=== PATIENT | female | born 1985 | race Caucasian/White ===

== ENCOUNTER 2019-12-22 14:44 | Emergency (ER) | payer BC ==
[~2019-12-22] VITALS: Ht 170.2 cm; Wt 81.6 kg
[2019-12-22 15:26] LABS: BASOPHILS % 0.6 % (0.0-1.0); EOSINOPHILS # (AUTO) 0.3 (0.0-0.4); EOSINOPHILS % 3.6 % (0.0-6.0); HEMOGLOBIN 10.6 g/dL (12.0-16.0); LYMPHOCYTES # (AUTO) 1.9 (1.0-3.2); LYMPHOCYTES % 27.7 % (18.0-39.1); MEAN CORPUSCULAR HEMOGLOBIN 30.6 pg (28-32); MEAN CORPUSCULAR HGB CONC 31.2 g/dL (31-35); MEAN CORPUSCULAR VOLUME 98.3 fL (81-99); MONOCYTES # (AUTO) 0.5 (0.2-0.8); MONOCYTES % 7.8 % (4.4-11.3); NEUTROPHILS # (AUTO) 4.2 (2.1-6.9); NEUTROPHILS % 59.9 % (38.7-80.0); PLATELET COUNT 223 x10e3/uL (140-360); RED BLOOD COUNT 3.46 x10e6/uL (3.6-5.1); RED CELL DISTRIBUTION WIDTH 15.5 % (11.7-14.4)
[2019-12-22 15:41] LABS: INR 0.88; PROTHROMBIN TIME 12.4 seconds (11.9-14.5)
[2019-12-22 15:51] LABS: ALANINE AMINOTRANSFERASE 37 IU/L (0-55); ALBUMIN 3.6 g/dL (3.5-5.0); ALBUMIN/GLOBULIN RATIO 1.2 (0.8-2.0); ALKALINE PHOSPHATASE 62 IU/L (40-150); ANION GAP 15.2 mmol/L (8-16); BLOOD UREA NITROGEN 14 mg/dL (7-26); BUN/CREATININE RATIO 22 (6-25); CALCIUM 8.4 mg/dL (8.4-10.2); CARBON DIOXIDE 22 mmol/L (22-29); CHLORIDE 107 mmol/L (98-107); CREATININE, SERUM 0.64 mg/dL (0.57-1.11); EST GLOMERULAR FILTRATION RATE > 60 ML/MIN (60-); GLUCOSE 88 mg/dL (74-118); POTASSIUM 4.2 mmol/L (3.5-5.1); SODIUM 140 mmol/L (136-145)
--- OUTSIDE RECORDS SUMMARY | 2019-12-22 15:56 | XMS REPORT | Continuity of Care Document ---
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 Attphys Unavailable MOMO FITZGERALD P.A. Attphys Unavailable MOMO VALE M.D. Attphys Unavailable Problems Condition Name Condition Details Condition Category Status Onset Date Resolution Date Last Treatment Date Treating Clinician Comments Source Tear of articular cartilage of left knee, current, sub s Tear of articular cartilage of left knee, current, subs Problem Active [facility] Tear of articular cartilage of right knee, current, espinal bs Tear of articular cartilage of right knee, current, subs Problem Active [facility] Postoperative pain Postoperative pain Problem Active [facility] Allergies, Adverse Reactions, Alerts This patient has no known allergies or adverse reactions. Medications Ordered Medication Name Filled Medication Name Start Date Stop Da te Current Medication? Ordering Clinician Indication Dosage Frequency Signature (SIG) Comments Components Source Ketorolac Tromethamine 10 MG Oral Tablet Ketorolac Tro methamine 10 MG Oral Tablet 2019-12-04 00:00:00 Yes YECENIA EUHUS P.A. TAKE 1 TABLET EVERY 8 HOURS NEEDED FOR PAIN.DO NOT EXCEED 40MG/DAY. DO NOT TAKE FOR MORE THAN 5 DAYS. [facility] Lidocaine 5 % External Patch Lidocaine 5 % External Patch 2019-11-24 00:00:00 Yes YECENIA EUHUS P.A. Apply to pa inful area(s) for up to 12 hours a day.May cut to size; may use on up to 3 areas (max 3 patches total/day).Do not use on incision. [facility] traMADol HCl - 50 MG Oral Tablet traMADol HCl - 50 MG Oral T ablet 2019-12-03 00:00:00 Yes MOMO FITZGERALD P.A. Take 1-2 tabs PO q4-6 h prn knee pain (max 8 tabs in 24 hr) [facility] Pregabalin 50 MG Oral Capsule Pregabalin 50 MG Oral Capsule 2019 00:00:00 Yes MOMO Lunsford Q0.3333D TAKE 1 CAPSULE 3 TIMES DAILY. [facility] Vital Signs Vital Name Observation Time Observation Value Comments Source Body height 2019-10-17 10:32:00 69 [in_us] [facility] Weight 2019-10-17 10:32:00 175 [lb_av] [facility] Body mass index (BMI) [Ratio] 2019-10-17 10:32:00 25.84 kg/m2 [facility] Height 2018-02-02 10:43:00 67 [in_us] [facility] Weight 2018-02-02 10:43:00 130 [lb_av] [facility] Body Mass Index Calculated 2018-02-02 10:43:00 20.36 kg/m2 [facility] Procedures Procedure Date / Time Performed Performing Clinician Sourc e Initial Promis 29 Survey 2019-11-27 00:00:00 [facility] X[facility] KNEE 3 VWS BILATERAL 2019-08-27 00:00:00 [facility] [U] XR KNEE 3 VWS BILATERAL 2018-08-30 00:00:00 [facility] [U] XRAY KNEE 3 VWS RIGHT [id number] 2018-08-29 00:00:00 [facility] [U] XRAY KNEE 4 OR MORE VWS BILATERAL [id number] 2018-02-02 00:00:00 [facility] [U] XRAY BONE LENGTH STUDY-SCANOGRAM [id number] 2018-02-02 00:00:00 [facility] Encounters Start Date/Time End Date/Time Encounter Type Admission Type Attendi [facility] Care Department Encounter ID Source 2019-12-03 07:00:00 2019-12-03 07:00:00 Appointment; ROSALVA BLAND M.D. MATHIS, KENNETH, M.D. [facility] [id number] [facility] 2019-10-17 10:00:00 2019-10-17 10:00:00 Appointment; ABHISHEK FITZGERALD P.A. HAWKS, CHRISTOPHER, P.A. [facility] [id number] [facility] 2019-10-17 09:15:00 2019-10-17 09:15:00 Appointment; ROSALVA BLAND M.D. MATHIS, KENNETH, M.D. [facility] Orthopedics [facility] [id number] [facility] 2019-08-29 11:15:00 2019-08-29 11:15:00 Appointment; ROSALVA BLAND M.D. MATHIS, KENNETH, M.D. [facility] at [facility] [id number] [facility] 2018-08-30 14:00:00 2018-08-30 14:00:00 Appointment; ROSALVA BLAND M.D. MATHIS, KENNETH, M.D. [facility] Orthopedics at [facility] [id number] [facility] 2018-02-02 10:00:00 2018-02-02 10:00:00 Appointment; VERNON VALE M.D. HARNER, CHRISTOPHER, M.D. [facility] Orthopedics at [facility] [id number] [facility] Results Test Description Test Time Test Comments Results Result Comments Source Initial Promis 29 Survey 2019-11-30 16:46:26 Test Item Pain Interference: (test code = Pain Interference:) 75.3 1 N Pain Intensity: (test code = Pain Intensity:) 71.8 1 N Physical Function: (test code = Physical Function:) 29.3 1 N Satisfaction Role: (test code = Satisfaction Role:) 22 1 N [facility][U] XR KNEE 3 VWS [id number] 08:04:00 Images acquired, not reported on this accession number.[facility][U] XRAY BONE LENGTH STUDY-SCANOGRAM [id number] 10:30:00* Test Item Value Reference Range Interpretation Comments XR BONE LENGTH STUDY-SCANOGRAM (test code = XR BONE LE NGTH STUDY-SCANOGRAM) EXAM: XR BONE LENGTH STUDY-SCANOGRAM DATE: 02/02/2018 2:23 PM CDT INDICATION: bilateral knee pain COMPARISON: None available TECHNIQUE: Weightbearing AP view of the bilateral lower extremities from hips to ankles DISCUSSION:Distance of the weightbearing axis (measured from Center of femoral head to midpoint of tibial plafond) to the center of the knee joint: Right knee = 0.8 cmLeft knee = 0.5 cm Genu angulation:Right knee varus = 2 degreesLeft knee varus = 2 degrees Bilateral PCL tunnels and hardware is detailed in the concomitant knee radiographs. IMPRESSION: Full length imaging of the bilateral lower extremities, measurements as above. 02/02/2018 3:38 PM CDT Juan Bland [facility][U] XRAY KNEE 4 OR MORE VWS BILATERAL [id number] 2018-02-02 10:30:00* Test Item Value Reference Range Interpretation Comments XRAY KNEE 4 OR MORE VWS BILATERAL (test code = XRAY KNEE 4 OR MORE VWS BILATERAL) EXAM: XRAY KNEE 4 OR MORE VWS BILATERAL DATE: 02/02/2018 2:24 PM CDT INDICATION: bilateral knee pain COMPARISON: None available TECHNIQUE: Weight- bearing AP, sunrise and lateral views of the bilateral knees DISCUSSION: No acute fracture or malalignment is identified. Right knee: Medial compartment joint space narrowing is present, with lateral and patellofemoral compartment joint spaces preserved. Small osteophytes are present. There is additional ACL graft tunnels and an obliquely oriented tunnel/screw track seen in the lateral femoral condyle extending across.Fixation of the proximal tibial metadiaphysis with 2 screws and washers.Vacant screw tracks seen in the femoral head. There is small joint effusion. No soft tissue abnormality is identified. Left knee: Medial compartment joint space narrowing is present, with lateral and patellofemoral compartment joint spaces preserved. Small tricompartmental osteophytes are present. Medial and lateral proximal tibial PCL tunnels are present. Additionally a lateral femoral condyle tunnel is present. There is fixation of proximal tibia with 2 screws and washers. 3 partially-threaded screws are seen in the medial aspect of the lateral femoral metadiaphysis. There is moderate joint effusion. No soft tissue abnormality is identified. IMPRESSION: 1. Right knee: Tricompartmental osteoarthrosis, most notably Kellgren-Mikael grade 3, moderate in the medial compartment. 2. Left knee: Tricompartmental osteoarthrosis, most notably Kellgren-Mikael grade 3, moderate in the medial compartment. 3. Bilateral posterior cruciate ligament tunnels and fixation hardware as above. 02/06/2018 5:26 PM CDT Juan Bland [facility]
--- NOTE | 2019-12-22 16:53 | Emergency Department Note ---
History of Present Illnes History of Present Illness Chief Complaint: General Medicine Complaints History of Present Illness This is a 34 year old female Patient in from home with reports of swelling, pain and bruising to her right lower extremity and pain to her left lower extremity. Patient is 19 days post op right total knee replacement and was told to come to the ER to rule out DVT. Patient does have some bruising to her posterior calf area on her right leg. Patient ambulating well with walker. Historian: Patient Arrival Mode: Car Specialty Trimmer Required: No Onset (how long ago): day(s) Location: BOTH LOWER LEGS Quality: PAIN Radiation: Reports non-radiation Severity: moderate Onset quality: gradual Timing of current episode: constant Chronicity: new Context: Denies recent illness Relieving factors: none Exacerbating factors: none Associated symptoms: Reports denies other symptoms (AIDA ARIAS MD) Past Medical/Family History Physician Review I have reviewed the patient's past medical and family history. Any updates have been documented here. (AIDA ARIAS MD) Past Medical History Recent Fever: No Clinical Suspicion of Infectio: No New/Unexplained Change in Ment: No Past Medical History: None Past Surgical History: Knee Replacement Other Surgery: Right total knee replacement after trampoline injury when she was 7 years old Multiple bilateral knee surgeries (AIDA ARIAS MD) Social History Smoking Cessation: Current every day smoker Counseling Performed: Yes Alcohol Use: Social Any Illegal Drug Use: No TB Exposure/Symptoms: No Physically hurt or threatened: No (AIDA ARAIS MD) Family History Family history of heart diseas: No (AIDA ARIAS MD) Other Any Pre-Existing Lines (PICC,: No (AIDA ARIAS MD) Review of Systems Review of Systems Constitutional: Reports no symptoms EENTM: Reports no symptoms Cardiovascular: Reports no symptoms Respiratory: Reports no symptoms Gastrointestinal: Reports no symptoms Genitourinary: Reports no symptoms Musculoskeletal: Reports as per HPI Integumentary: Reports no symptoms Neurological: Reports no symptoms Psychological: Reports no symptoms Endocrine: Reports no symptoms Hematological/Lymphatic: Reports no symptoms (AIDA ARIAS MD) Physical Exam Related Data Allergies: Coded Allergies: No Known Allergies (Unverified , 12/22/19) Triage Vital Signs Vital Signs Date Time Temp Pulse Resp B/P (MAP) Pulse Ox O2 Delivery O2 Flow Rate FiO2 12/22/19 14:51 98.3 100 18 162/83 99 Room Air Vital signs reviewed: Yes (AIDA ARIAS MD) Physical Exam CONSTITUTIONAL Constitutional: Present well-developed, Present well-nourished HENT HENT: Present normocephalic, Present atraumatic, Present oropharynx clear/moist, Present nose normal HENT L/R: Present left ext ear normal, Present right ext ear normal EYES Eyes: Reports PERRL, Reports conjunctivae normal NECK Neck: Present ROM normal PULMONARY Pulmonary: Present effort normal, Present breath sounds normal CARDIOVASCULAR Cardiovascular: Present regular rhythm, Present heart sounds normal, Present capillary refill normal, Present normal rate GASTROINTESTINAL Abdominal: Present soft, Present nontender, Present bowel sounds normal GENITOURINARY Genitourinary: Present exam deferred SKIN Skin: Present warm, Present dry MUSCULOSKELETAL Musculoskeletal: Present other (MOD POST-OP SWELLING RIGHT KNEE, ECCHYMOSIS RIGHT CALF WITH MINIMAL SWELLING AND TENDERNESS, MILD LEFT CALF SWELLING AND TE NDERNESS) NEUROLOGICAL Neurological: Present alert, Present oriented x 3, Present no gross motor or sensory deficits PSYCHOLOGICAL Psychological: Present mood/affect normal, Present judgement normal (AIDA AGUILERA MD) Results Laboratory Result Diagram: 12/22/19 1509 12/22/19 1509 Laboratory Laboratory Tests Test 12/22/19 15:09 White Blood Count 6.94 x10e3/uL (4.8-10.8) Red Blood Count 3.46 x10e6/uL (3.6-5.1) Hemoglobin 10.6 g/dL (12.0-16.0) Hematocrit 34.0 % (34.2-44.1) Mean Corpuscular Volume 98.3 fL (81-99) Mean Corpuscular Hemoglobin 30.6 pg (28-32) Mean Corpuscular Hemoglobin Concent 31.2 g/dL (31-35) Red Cell Distribution Width 15.5 % (11.7-14.4) Platelet Count 223 x10e3/uL (140-360) Neutrophils (%) (Auto) 59.9 % (38.7-80.0) Lymphocytes (%) (Auto) 27.7 % (18.0-39.1) Monocytes (%) (Auto) 7.8 % (4.4-11.3) Eosinophils (%) (Auto) 3.6 % (0.0-6.0) Basophils (%) (Auto) 0.6 % (0.0-1.0) Neutrophils # (Auto) 4.2 (2.1-6.9) Lymphocytes # (Auto) 1.9 (1.0-3.2) Monocytes # (Auto) 0.5 (0.2-0.8) Eosinophils # (Auto) 0.3 (0.0-0.4) Basophils # (Auto) 0.0 (0.0-0.1) Absolute Immature Granulocyte (auto 0.03 x10e3/uL (0-0.1) Prothrombin Time 12.4 seconds (11.9-14.5) Prothromb Time International Ratio 0.88 Activated Partial Thromboplast Time 30.0 seconds (23.8-35.5) Sodium Level 140 mmol/L (136-145) Potassium Level 4.2 mmol/L (3.5-5.1) Chloride Level 107 mmol/L (98-107) Carbon Dioxide Level 22 mmol/L (22-29) Anion Gap 15.2 mmol/L (8-16) Blood Urea Nitrogen 14 mg/dL (7-26) Creatinine 0.64 mg/dL (0.57-1.11) Estimat Glomerular Filtration Rate > 60 ML/MIN (60-) BUN/Creatinine Ratio 22 (6-25) Glucose Level 88 mg/dL (74-118) Calcium Level 8.4 mg/dL (8.4-10.2) Total Bilirubin 0.3 mg/dL (0.2-1.2) Aspartate Amino Transf (AST/SGOT) 26 IU/L (5-34) Alanine Aminotransferase (ALT/SGPT) 37 IU/L (0-55) Alkaline Phosphatase 62 IU/L (40-150) Total Protein 6.7 g/dL (6.5-8.1) Albumin 3.6 g/dL (3.5-5.0) Globulin 3.1 g/dL (2.3-3.5) Albumin/Globulin Ratio 1.2 (0.8-2.0) Human Chorionic Gonadotropin, Qual Negative (NEGATIVE) Lab results reviewed: Yes (AIDA ARIAS MD) Imaging Imaging results reviewed: Yes (AIDA ARIAS MD) Imaging results reviewed: Yes Impressions VENOUS DOPPLER NEGATIVE FOR DVT (DESTINEE العلي MD) Procedures 12 Lead ECG Interpretation ECG Interpretation : Date: Dec 22, 2019 (AIDA ARIAS MD) Assessment & Plan Medical Decision Making MDM CHECK CBC, CHEM, VENOUS DOPPLER - R/O DVT, LEUKOCYTOSIS, RENAL OR HEPATIC DYSFUNCTION (AIDA ARIAS MD) Reassessment Reassessment REPORT TO DR العلي TO F/U VENOUS DOPPLER AND DISPO (AIDA ARIAS MD) Assessment & Plan Final Impression: (1) Leg pain (AIDA ARIAS MD) Depart Disposition: HOME, SELF-CARE Last Vital Signs Date Time Temp Pulse Resp B/P (MAP) Pulse Ox O2 Delivery O2 Flow Rate FiO2 12/22/19 14:51 98.3 100 18 162/83 99 Room Air (AIDA ARIAS MD) AIDA ARIAS MD Dec 22, 2019 16:53 DESTINEE العلي MD Dec 22, 2019 19:15
[2019-12-22 19:20] VITALS: BP 146/78
== END 2019-12-22 19:30 | disposition home or self-care (01) ==
LOC: ER 15:04
DX: M79.661 Pain in right lower leg (principal); Z96.651 Presence of right artificial knee joint; F17.210 Nicotine dependence, cigarettes, uncomplicated
CPT/HCPCS: 36415; 80053; 84702; 85025; 85610; 85730; 93970; 99283